=== PATIENT | female | born 1950 | race Caucasian/White ===

== ENCOUNTER 2017-11-12 11:30 | Emergency (ER) | payer MEDICARE ==
[~2017-11-12 11:30] MED LIST: ASPI-1197 PO; ATOR40TA71 PO; DULO60CA63 PO; HYDR25TA PO; LISI10TA7 PO; LOSA25TA21 PO; NIAC-8 PO; QUET200T PO; QUET200T58 PO; VARE1TAB21 PO
== END 2017-11-12 12:59 | disposition home or self-care (01) ==
LOC: EDH 11:30
DX: K11.20 Sialoadenitis, unspecified (principal); E11.9 Type 2 diabetes mellitus without complications; E78.5 Hyperlipidemia, unspecified; I10 Essential (primary) hypertension; I25.10 Atherosclerotic heart disease of native coronary artery without angina pectoris; Z88.0 Allergy status to penicillin; Z88.8 Allergy status to other drugs, medicaments and biological substances; Z72.0 Tobacco use

== ENCOUNTER 2017-12-20 14:47 | Emergency (ER) | payer OTHER, MEDICARE ==
[2017-12-20 15:27] LABS: BASOPHILS % (AUTO) 0.3 % (0.0-5.0); LYMPHOCYTES % (AUTO) 20.4 % (21.0-51.0); MEAN CORPUSCULAR HEMOGLOBIN 34.6 pg (27.0-33.0); MEAN CORPUSCULAR HGB CONC 35.4 g/dL (32.0-36.0); MEAN CORPUSCULAR VOLUME 97.6 fL (79-99); MONOCYTES % (AUTO) 8.1 % (3.0-13.0); NEUTROPHILS % (AUTO) 69.2 % (40.0-77.0); PLATELET COUNT (AUTO) 287 K/uL (130-400); RED CELL DISTRIBUTION WIDTH 14.7 % (11.0-15.5); WHITE BLOOD COUNT (AUTO) 6.2 K/uL (4.8-10.8)
[2017-12-20 15:35] LABS: POTASSIUM 3.6 mmol/L (3.5-5.1)
[2017-12-20] MEDS ORDERED: KETOROLAC TROMETHAMINE 15MG/ML ONE (16:19)
[2017-12-20] MEDS ORDERED: ORPHENADRINE CITRATE 30 MG/ML ML ONE (16:19)
[2017-12-20 16:53] LABS: APPEARANCE,URINE Clear (CLEAR); BILIRUBIN,URINE Negative (NEGATIVE); COLOR,URINE Yellow (YELLOW); GLUCOSE, URINE (UA) 250 mg/dL (NEGATIVE); KETONES,URINE Negative (NEGATIVE); LEUKOCYTE ESTERASE ,URINE Trace (NEGATIVE); NITRATE,URINE Negative (NEGATIVE); OCCULT BLOOD,URINE Nonhemolyzed Trace (NEGATIVE); PH,URINE 6.5 (5.0-8.0); PROTEIN,URINE Negative (NEGATIVE); UROBILINOGEN,URINE 0.2 mg/dL (0.2-1.0)
[2017-12-20 17:13] LABS: BACTERIA,URINE Rare /HPF (None Seen); RBC,URINE 0-1 /HPF (0-1); SQUAMOUS EPITHELIAL CELL,UR Rare /LPF (0-2); TRANSITIONAL EPI CELLS,URINE Rare /LPF (None Seen); WBC,URINE 0-1 /HPF (0-1)
== END 2017-12-20 16:57 | disposition home or self-care (01) ==
LOC: EDH 14:47
DX: S16.1XXA Strain of muscle, fascia and tendon at neck level, initial encounter (principal); S29.011A Strain of muscle and tendon of front wall of thorax, initial encounter; I25.10 Atherosclerotic heart disease of native coronary artery without angina pectoris; E11.9 Type 2 diabetes mellitus without complications; E78.5 Hyperlipidemia, unspecified; I10 Essential (primary) hypertension; Z88.0 Allergy status to penicillin; Z88.8 Allergy status to other drugs, medicaments and biological substances; V49.59XA Passenger injured in collision with other motor vehicles in traffic accident, initial encounter; Y93.89 Activity, other specified; Y92.89 Other specified places as the place of occurrence of the external cause; Y99.8 Other external cause status
CPT/HCPCS: 36415; 71250; 72125; 80048; 81001; 85025; 96374; 96375; 99285; J1885; J2360

== ENCOUNTER 2018-01-10 09:39 | Inpatient (IN) | payer MEDICARE ==
[~2018-01-10] VITALS: Ht 157.5 cm; Wt 75.4 kg
[2018-01-10] VITALS (21 sets, daily range): BP systolic 97–146; BP diastolic 37–69
[2018-01-10 10:14] LABS: BASOPHILS % (AUTO) 0.8 % (0.0-5.0); EOSINOPHILS % (AUTO) 0.1 % (0.0-8.0); HEMATOCRIT 39.6 % (36-48); MEAN CORPUSCULAR HEMOGLOBIN 33.3 pg (27.0-33.0); MEAN CORPUSCULAR HGB CONC 35.9 g/dL (32.0-36.0); MEAN CORPUSCULAR VOLUME 92.9 fL (79-99); MONOCYTES % (AUTO) 2.2 % (3.0-13.0); NEUTROPHILS % (AUTO) 88.9 % (40.0-77.0); NUCLEATED RED BLOOD CELLS 0.3 % (0.0-0.19); PLATELET COUNT (AUTO) 67 K/uL (130-400); RED BLOOD CELL COUNT(AUTO) 4.27 MIL/uL (4.00-5.50); WHITE BLOOD COUNT (AUTO) 7.2 K/uL (4.8-10.8)
[2018-01-10] MEDS ORDERED: SODIUM CHLORIDE 0.9% 1000ML 1,000 ML IV ONE ×3 (10:38→13:26)
[2018-01-10 10:39] LABS: ALBUMIN 2.2 g/dL (3.5-5.0); BILIRUBIN,TOTAL 1.1 mg/dL (0.2-1.0); CREATINE KINASE MB 1.1 ng/mL (0.5-3.6); CREATININE 4.9 mg/dL (0.5-1.5); TOTAL PROTEIN, SERUM 6.7 g/dL (6.0-8.3)
[2018-01-10 10:47] LABS: INR 0.99 (0.85-1.15); PARTIAL THROMBOPLASTIN TIME 26.4 SEC (26.3-35.5); PROTHROMBIN TIME 10.4 SEC (9.6-11.6)
[2018-01-10 11:05] LABS: POTASSIUM 1.8 mmol/L (3.5-5.1)
[2018-01-10] MEDS ORDERED: POTASSIUM CHLORIDE 20MEQ/100ML 100 ML IV ONE (11:25)
[2018-01-10] MEDS ORDERED: POTASSIUM BICARB/CIT AC 25 MEQ TABLET.EFF ONE (11:25)
[2018-01-10 11:43] LABS: PLATELET MORPHOLOGY COMMENT DECREASED
[2018-01-10] MEDS ORDERED: HYDROCORTISONE SOD SUCCINATE 100 MG/2 ML VIAL ONE ×2 (12:13→13:25)
[2018-01-10] MEDS ORDERED: LIDOCAINE HCL-MPF 1% 2ML VIAL ONE (12:13)
[2018-01-10] MEDS ORDERED: DOPAMINE HCL 400 MG/D5%-WATER 250 ML IV ONE (12:14)
[2018-01-10] MEDS ORDERED: NOREPINEPHRINE 4MG/NS 250ML 250 ML IV PRN (13:15)
[2018-01-10] MEDS ORDERED: LEVOFLOXACIN 500 MG/D5W 100 ML 100 ML ONE (13:26)
[2018-01-10 14:00] LABS: APPEARANCE,URINE SL CLOUDY (CLEAR); BILIRUBIN,URINE NEGATIVE (NEGATIVE); COLOR,URINE YELLOW (YELLOW); GLUCOSE, URINE (UA) >=1000 mg/dL (NEGATIVE); KETONES,URINE NEGATIVE (NEGATIVE); LEUKOCYTE ESTERASE ,URINE NEGATIVE (NEGATIVE); NITRATE,URINE NEGATIVE (NEGATIVE); OCCULT BLOOD,URINE MODERATE (NEGATIVE); PH,URINE 5.5 (5.0-8.0); PROTEIN,URINE 30 (NEGATIVE); UROBILINOGEN,URINE 0.2 mg/dL (0.2-1.0)
[2018-01-10] MEDS ORDERED: POTASSIUM CHLORIDE 20 MEQ ERTAB PO PRN (14:15)
[2018-01-10] MEDS ORDERED: POTASSIUM CHLORIDE 10% ELIXIR 20 MEQ/15 ML UDCUP PO PRN ×2 (14:15)
[2018-01-10] MEDS ORDERED: POTASSIUM CHLORIDE 20MEQ/100ML 100 ML IV PRN (14:15)
[2018-01-10] MEDS: SODIUM CHLORIDE 0.9% 1000ML 1,000 ML IV SCH (14:15)
[2018-01-10] MEDS ORDERED: LIDOCAINE HCL-MPF 1% 2ML VIAL IVP PRN (14:15)
[2018-01-10] MEDS ORDERED: MEROPENEM 1GM IVPB PREMIXED 1 GM IV SCH (14:15)
[2018-01-10 14:25] LABS: AMORPHOUS SEDIMENT,UR Moderate /LPF (None Seen); BACTERIA,URINE Few /HPF (None Seen); SQUAMOUS EPITHELIAL CELL,UR 0-2 /HPF (0-2); WBC,URINE None Seen /HPF (0-1)
[2018-01-10] MEDS ORDERED: MEROPENEM 1 GM VIAL IVP SCH (15:00)
[2018-01-10 15:04] LABS: CHLORIDE,URINE RANDOM 66 mmol/L (110-250); POTASSIUM,URINE RANDOM 43 mmol/L (25-125); SODIUM,URINE RANDOM 31 mmol/l (40-220)
[2018-01-10] MEDS ORDERED: RENAL DOSE IV PRN (15:15)
[2018-01-10] MEDS ORDERED: DEXTROSE 50%-WATER 50 ML DISP.SYRIN IV PRN (15:30)
[2018-01-10] MEDS ORDERED: GLUCAGON 1MG KIT 1 MG ML IM PRN (15:30)
[2018-01-10 16:41] LABS: CREATININE 4.5 mg/dL (0.5-1.5); THYROID STIMULATING HORMONE 0.09 uIU/mL (0.36-3.74); URIC ACID 6.7 mg/dL (2.6-7.2)
[2018-01-10 16:43] LABS: POTASSIUM 2.1 mmol/L (3.5-5.1)
[2018-01-10] MEDS: HYDROCORTISONE SOD SUCCINATE 100 MG/2 ML VIAL IV SCH (16:45)
[2018-01-10] MEDS: MEROPENEM 500 MG VIAL IVP SCH (16:45)
[2018-01-10] MEDS: INSULIN HUMULIN R 100 UNIT/ML 3ML SQ SCH ×2 (16:49→23:00)
[2018-01-10] MEDS: POTASSIUM CHLORIDE 20MEQ/100ML 100 ML IV PRN ×2 (17:00→17:36)
[2018-01-10] MEDS: POTASSIUM CHLORIDE 20 MEQ ERTAB PO PRN ×5 (17:00→23:36)
[2018-01-10] MEDS: LIDOCAINE HCL-MPF 1% 2ML VIAL IVP PRN (17:36)
[2018-01-10 22:15] LABS: CREATININE 4.2 mg/dL (0.5-1.5)
[2018-01-10 22:18] LABS: POTASSIUM 2.7 mmol/L (3.5-5.1)
[2018-01-11] VITALS (15 sets, daily range): BP systolic 110–159; BP diastolic 54–84
[2018-01-11] MEDS: SODIUM CHLORIDE 0.9% 1000ML 1,000 ML IV SCH ×4 (00:10→20:15)
[2018-01-11] MEDS: HYDROCORTISONE SOD SUCCINATE 100 MG/2 ML VIAL IV SCH ×2 (00:10→06:38)
[2018-01-11] MEDS: LIDOCAINE HCL-MPF 1% 2ML VIAL IVP PRN ×3 (01:30→11:04)
[2018-01-11] MEDS: POTASSIUM CHLORIDE 20MEQ/100ML 100 ML IV PRN ×4 (01:30→11:58)
[2018-01-11 03:47] LABS: HEMATOCRIT 35.2 % (36-48); MEAN CORPUSCULAR HEMOGLOBIN 33.5 pg (27.0-33.0); MEAN CORPUSCULAR HGB CONC 35.9 g/dL (32.0-36.0); MEAN CORPUSCULAR VOLUME 93.5 fL (79-99); NUCLEATED RED BLOOD CELLS 0.3 % (0.0-0.19); PLATELET COUNT (AUTO) 55 K/uL (130-400); RED BLOOD CELL COUNT(AUTO) 3.76 MIL/uL (4.00-5.50); RED CELL DISTRIBUTION WIDTH 16.3 % (11.0-15.5); WHITE BLOOD COUNT (AUTO) 6.6 K/uL (4.8-10.8)
[2018-01-11 03:57] LABS: POTASSIUM 3.1 mmol/L (3.5-5.1)
[2018-01-11] MEDS: MEROPENEM 500 MG VIAL IVP SCH ×2 (04:29→16:44)
[2018-01-11] MEDS: INSULIN HUMULIN R 100 UNIT/ML 3ML SQ SCH ×4 (06:27→21:19)
[2018-01-11] MEDS: POTASSIUM CHLORIDE 20 MEQ ERTAB PO PRN ×6 (08:01→16:50)
[2018-01-11 10:40] LABS: CREATININE 3.7 mg/dL (0.5-1.5)
[2018-01-11 10:46] LABS: POTASSIUM 2.6 mmol/L (3.5-5.1)
[2018-01-11 16:14] LABS: CREATININE 3.3 mg/dL (0.5-1.5); POTASSIUM 3.2 mmol/L (3.5-5.1)
[2018-01-11] MEDS: IPRATROPIUM/ALBUTEROL SULFATE 3 ML SOLUTION IH PRN (20:30)
[2018-01-11] MEDS: NIACIN 250 MG TABLET.SA PO SCH (21:00)
[2018-01-11] MEDS: QUETIAPINE FUMARATE 100 MG TAB PO SCH (21:13)
[2018-01-11] MEDS: ATORVASTATIN CALCIUM 40 MG TABLET PO SCH (21:13)
[2018-01-12 03:18] VITALS: BP 140/75
[2018-01-12] MEDS: SODIUM CHLORIDE 0.9% 1000ML 1,000 ML IV SCH ×3 (03:28→23:16)
[2018-01-12] MEDS: MEROPENEM 500 MG VIAL IVP SCH (03:28)
[2018-01-12 06:04] LABS: HEMATOCRIT 36.2 % (36-48); MEAN CORPUSCULAR HEMOGLOBIN 33.5 pg (27.0-33.0); NUCLEATED RED BLOOD CELLS 0.2 % (0.0-0.19); PLATELET COUNT (AUTO) 65 K/uL (130-400); RED BLOOD CELL COUNT(AUTO) 3.89 MIL/uL (4.00-5.50); RED CELL DISTRIBUTION WIDTH 16.6 % (11.0-15.5)
[2018-01-12] MEDS: INSULIN HUMULIN R 100 UNIT/ML 3ML SQ SCH ×5 (06:10→21:01)
[2018-01-12 06:12] LABS: CREATININE 2.7 mg/dL (0.5-1.5)
[2018-01-12 06:17] LABS: POTASSIUM 2.7 mmol/L (3.5-5.1)
[2018-01-12 08:00] VITALS: BP 147/83
[2018-01-12] MEDS: LIDOCAINE HCL-MPF 1% 2ML VIAL IVP PRN ×2 (09:13→11:05)
[2018-01-12] MEDS: NIACIN 250 MG TABLET.SA PO SCH ×2 (09:13→20:56)
[2018-01-12] MEDS: POTASSIUM CHLORIDE 20 MEQ ERTAB PO PRN ×2 (09:13→11:06)
[2018-01-12] MEDS: POTASSIUM CHLORIDE 20MEQ/100ML 100 ML IV PRN ×2 (09:14→11:05)
[2018-01-12 11:00] VITALS: BP 151/84
[2018-01-12] MEDS ORDERED: LEVOFLOXACIN 250 MG/D5W 50ML 50 ML IVPB SCH (13:00)
[2018-01-12] MEDS: IPRATROPIUM/ALBUTEROL SULFATE 3 ML SOLUTION IH PRN (14:45)
[2018-01-12 16:00] VITALS: BP 152/89
[2018-01-12 19:00] VITALS: BP 173/85
[2018-01-12] MEDS: QUETIAPINE FUMARATE 100 MG TAB PO SCH (20:56)
[2018-01-12] MEDS: ATORVASTATIN CALCIUM 40 MG TABLET PO SCH (20:56)
[2018-01-12 21:41] VITALS: BP 143/82
[2018-01-13] VITALS: BP 153/62
[2018-01-13] MEDS: SODIUM CHLORIDE 0.9% 1000ML 1,000 ML IV SCH ×3 (01:33→22:15)
[2018-01-13 04:00] VITALS: BP 145/69
[2018-01-13 04:56] LABS: HEMATOCRIT 33.6 % (36-48); MEAN CORPUSCULAR HGB CONC 35.7 g/dL (32.0-36.0); MEAN CORPUSCULAR VOLUME 92.6 fL (79-99); NUCLEATED RED BLOOD CELLS 0.1 % (0.0-0.19); PLATELET COUNT (AUTO) 61 K/uL (130-400); RED BLOOD CELL COUNT(AUTO) 3.63 MIL/uL (4.00-5.50); RED CELL DISTRIBUTION WIDTH 16.8 % (11.0-15.5); WHITE BLOOD COUNT (AUTO) 6.4 K/uL (4.8-10.8)
[2018-01-13 05:04] LABS: BAND NEUTROPHILS % (MANUAL) 4 % (0-2); LYMPHOCYTES % (MANUAL) 17 % (22-44); MAN.DIFF COMMENT-IMPRESSION MANUAL DIFFERENTIAL; MONOCYTES % (MANUAL) 3 % (2-9); PLATELET MORPHOLOGY COMMENT DECREASED; SEGMENTED NEUTROPHILS % 76 % (40-70)
[2018-01-13 05:07] LABS: CREATININE 2.1 mg/dL (0.5-1.5); MAGNESIUM 1.7 mg/dL (1.80-2.40)
[2018-01-13 05:10] LABS: POTASSIUM 2.4 mmol/L (3.5-5.1)
[2018-01-13] MEDS: LIDOCAINE HCL-MPF 1% 2ML VIAL IVP PRN ×4 (05:29→23:09)
[2018-01-13] MEDS: POTASSIUM CHLORIDE 20MEQ/100ML 100 ML IV PRN ×4 (05:29→23:10)
[2018-01-13] MEDS: POTASSIUM CHLORIDE 20 MEQ ERTAB PO PRN ×5 (05:34→23:10)
[2018-01-13] MEDS: INSULIN HUMULIN R 100 UNIT/ML 3ML SQ SCH ×4 (06:33→21:11)
[2018-01-13 08:00] VITALS: BP 159/97
[2018-01-13] MEDS: NIACIN 250 MG TABLET.SA PO SCH ×2 (08:53→21:04)
[2018-01-13 11:00] VITALS: BP 150/71
[2018-01-13] MEDS: IPRATROPIUM/ALBUTEROL SULFATE 3 ML SOLUTION IH PRN ×2 (11:03→21:56)
[2018-01-13] MEDS ORDERED: MAGNESIUM SULFATE 1 GM in SODIUM CHLORIDE 0.9% 50 ML IV SCH (12:45)
[2018-01-13] MEDS ORDERED: MAGNESIUM 2GM PREMIX 50ML 50 ML IV SCH (12:45)
[2018-01-13] MEDS ORDERED: FUROSEMIDE 10 MG/ML 4ML VIAL IV SCH (13:15)
[2018-01-13 16:00] VITALS: BP 142/95
[2018-01-13 19:00] VITALS: BP 128/65
[2018-01-13] MEDS: QUETIAPINE FUMARATE 100 MG TAB PO SCH (21:04)
[2018-01-13] MEDS: ATORVASTATIN CALCIUM 40 MG TABLET PO SCH (21:04)
[2018-01-14] VITALS: BP 110/52
[2018-01-14] MEDS: POTASSIUM CHLORIDE 20 MEQ ERTAB PO PRN ×2 (03:01→16:57)
[2018-01-14 04:00] VITALS: BP 119/60
[2018-01-14 04:16] LABS: HEMATOCRIT 32.4 % (36-48); MEAN CORPUSCULAR HEMOGLOBIN 33.8 pg (27.0-33.0); MEAN CORPUSCULAR HGB CONC 36.3 g/dL (32.0-36.0); MEAN CORPUSCULAR VOLUME 93.1 fL (79-99); NUCLEATED RED BLOOD CELLS 0.2 % (0.0-0.19); PLATELET COUNT (AUTO) 70 K/uL (130-400); RED BLOOD CELL COUNT(AUTO) 3.48 MIL/uL (4.00-5.50); RED CELL DISTRIBUTION WIDTH 16.6 % (11.0-15.5); WHITE BLOOD COUNT (AUTO) 6.9 K/uL (4.8-10.8)
[2018-01-14 04:21] LABS: CREATININE 1.9 mg/dL (0.5-1.5); MAGNESIUM 2.1 mg/dL (1.80-2.40); POTASSIUM 3.7 mmol/L (3.5-5.1)
[2018-01-14 04:59] LABS: BAND NEUTROPHILS % (MANUAL) 3 % (0-2); LYMPHOCYTES % (MANUAL) 12 % (22-44); MAN.DIFF COMMENT-IMPRESSION MANUAL DIFFERENTIAL; MONOCYTES % (MANUAL) 4 % (2-9); SEGMENTED NEUTROPHILS % 81 % (40-70)
[2018-01-14 05:00] LABS: PLATELET MORPHOLOGY COMMENT DECREASED
[2018-01-14] MEDS: SODIUM CHLORIDE 0.9% 1000ML 1,000 ML IV SCH (05:21)
[2018-01-14] MEDS: IPRATROPIUM/ALBUTEROL SULFATE 3 ML SOLUTION IH PRN (06:09)
[2018-01-14] MEDS: INSULIN HUMULIN R 100 UNIT/ML 3ML SQ SCH ×3 (06:20→16:57)
[2018-01-14] MEDS ORDERED: PNEUMOCOCCAL VACCINE POLYVALENT 0.5 ML/VIAL [PPV] IM SCH (06:30)
[2018-01-14 08:03] VITALS: BP 132/67
[2018-01-14 11:45] VITALS: BP 146/69
[2018-01-14] MEDS: NIACIN 250 MG TABLET.SA PO SCH (12:00)
[2018-01-14 16:11] VITALS: BP 152/78
== END 2018-01-14 20:37 | disposition home or self-care (01) | DRG 682 ==
LOC: EDH 09:39 → EDHIP 12:30 → 2BH 13:16 → 3AH 01-11 15:25
PROVIDERS: ADMIT Family Medicine; ATTEND Family Medicine
PROC: 3E0234Z Introduction of Serum, Toxoid and Vaccine into Muscle, Percutaneous Approach (ICD-10-PCS; principal; 2018-01-10)
DX: N17.0 Acute kidney failure with tubular necrosis (principal); R57.1 Hypovolemic shock; E87.2 Acidosis; E11.22 Type 2 diabetes mellitus with diabetic chronic kidney disease; D69.6 Thrombocytopenia, unspecified; E87.1 Hypo-osmolality and hyponatremia; E83.42 Hypomagnesemia; J44.0 Chronic obstructive pulmonary disease with (acute) lower respiratory infection; E87.6 Hypokalemia; E87.8 Other disorders of electrolyte and fluid balance, not elsewhere classified; J20.9 Acute bronchitis, unspecified; N18.3 Chronic kidney disease, stage 3 (moderate); I12.9 Hypertensive chronic kidney disease with stage 1 through stage 4 chronic kidney disease, or unspecified chronic kidney disease; E78.5 Hyperlipidemia, unspecified; D63.8 Anemia in other chronic diseases classified elsewhere; F31.9 Bipolar disorder, unspecified; F17.210 Nicotine dependence, cigarettes, uncomplicated; I25.10 Atherosclerotic heart disease of native coronary artery without angina pectoris; Z88.0 Allergy status to penicillin; Z88.8 Allergy status to other drugs, medicaments and biological substances; Z23 Encounter for immunization
CPT/HCPCS: 36415; 71045; 76700; 76770; 80048; 80051; 80053; 81001; 82150; 82533; 82550; 82553; 82948; 83605; 83690; 83735; 83935; 84132; 84443; 84484; 84550; 85025; 85027; 85610; 85730; 87040; 87507; 87633; 90732; 93005; 94640; 94664; A4218; J1265; J1720; J1815; J1940; J1956; J2185; J3475; J3480; J3490; J7030

== ENCOUNTER 2018-01-20 06:31 | Inpatient (IN) | payer MEDICARE ==
[~2018-01-20] VITALS: Ht 157.5 cm; Wt 76.8 kg
[~2018-01-20 06:31] MED LIST changes: -DULO60CA63 PO; -HYDR25TA PO; -LISI10TA7 PO; -LOSA25TA21 PO; -QUET200T PO; -VARE1TAB21 PO
[2018-01-20 06:49] LABS: MEAN CORPUSCULAR VOLUME 94.7 fL (79-99); NUCLEATED RED BLOOD CELLS 0.1 % (0.0-0.19); WHITE BLOOD COUNT (AUTO) 5.6 K/uL (4.8-10.8)
[2018-01-20 07:01] LABS: ALBUMIN 2.8 g/dL (3.5-5.0); BASOPHILS % (AUTO) 1.1 % (0.0-5.0); BILIRUBIN,TOTAL 1.2 mg/dL (0.2-1.0); CREATININE 1.2 mg/dL (0.5-1.5); EOSINOPHILS % (AUTO) 0.5 % (0.0-8.0); HEMATOCRIT 39.6 % (36-48); LYMPHOCYTES % (AUTO) 42.3 % (21.0-51.0); MEAN CORPUSCULAR HGB CONC 34.8 g/dL (32.0-36.0); MONOCYTES % (AUTO) 9.8 % (3.0-13.0); NEUTROPHILS % (AUTO) 46.3 % (40.0-77.0); PLATELET COUNT (AUTO) 126 K/uL (130-400); RED BLOOD CELL COUNT(AUTO) 4.18 MIL/uL (4.00-5.50); RED CELL DISTRIBUTION WIDTH 16.7 % (11.0-15.5); TOTAL PROTEIN, SERUM 7.6 g/dL (6.0-8.3)
[2018-01-20] MEDS ORDERED: SODIUM CHLORIDE 0.9% 500ML 500 ML IV ONE (07:15)
[2018-01-20 07:21] LABS: POTASSIUM 2.9 mmol/L (3.5-5.1)
[2018-01-20] MEDS ORDERED: MAGNESIUM 2GM PREMIX 50ML 50 ML IV ONE (08:40)
[2018-01-20] MEDS ORDERED: POTASSIUM BICARB/CIT AC 25 MEQ TABLET.EFF ONE (08:40)
[2018-01-20 11:55] LABS: BILIRUBIN,URINE Negative (NEGATIVE); COLOR,URINE Yellow (YELLOW); GLUCOSE, URINE (UA) 500 mg/dL (NEGATIVE); KETONES,URINE 15 mg/dL (NEGATIVE); LEUKOCYTE ESTERASE ,URINE Small (NEGATIVE); NITRATE,URINE Negative (NEGATIVE); OCCULT BLOOD,URINE Nonhemolyzed Trace (NEGATIVE); PROTEIN,URINE POS 2+ (NEGATIVE)
[2018-01-20 11:56] LABS: APPEARANCE,URINE SLIGHTLY CLOUDY (CLEAR)
[2018-01-20 12:16] LABS: BACTERIA,URINE Rare /HPF (None Seen); RBC,URINE 0-1 /HPF (0-1); SQUAMOUS EPITHELIAL CELL,UR Rare /HPF (0-2)
[2018-01-20] MEDS ORDERED: POTASSIUM CHLORIDE 10% ELIXIR 20 MEQ/15 ML UDCUP PO PRN (12:30)
[2018-01-20 12:34] VITALS: BP 166/97
[2018-01-20 14:02] LABS: CHLORIDE,URINE RANDOM 108 mmol/L (110-250); POTASSIUM,URINE RANDOM 27 mmol/L (25-125); SODIUM,URINE RANDOM 101 mmol/l (40-220)
[2018-01-20] MEDS: POTASSIUM CHLORIDE 20MEQ/100ML 100 ML IV PRN (15:02)
[2018-01-20] MEDS: SODIUM CHLORIDE 0.9% 1000ML 1,000 ML IV SCH (15:02)
[2018-01-20 16:00] VITALS: BP 160/80
[2018-01-20 19:00] VITALS: BP 190/86
[2018-01-20] MEDS: QUETIAPINE FUMARATE 100 MG TAB PO SCH (20:16)
[2018-01-20] MEDS: ATORVASTATIN CALCIUM 40 MG TABLET PO SCH (20:16)
[2018-01-20] MEDS: HYDRALAZINE HCL 20 MG/ML VIAL IV PRN (20:21)
[2018-01-20] MEDS ORDERED: GADOBENATE DIMEGLUMINE 20 ML IV ONE (20:46)
[2018-01-20] MEDS ORDERED: LORAZEPAM 2 MG/ML 1 ML VIAL ONE (21:23)
[2018-01-20] MEDS ORDERED: LORAZEPAM 2 MG/ML 1 ML VIAL IVP ONE (22:30)
[2018-01-20 23:00] VITALS: BP 147/85
[2018-01-21] MEDS: SODIUM CHLORIDE 0.9% 1000ML 1,000 ML IV SCH ×3 (02:42→16:30)
[2018-01-21 03:00] VITALS: BP 169/75
[2018-01-21] MEDS: HYDRALAZINE HCL 20 MG/ML VIAL IV PRN (03:45)
[2018-01-21 04:39] LABS: HEMOGLOBIN A1C 7.8 % (4.0-6.0)
[2018-01-21 04:40] LABS: HEMATOCRIT 33.3 % (36-48); MEAN CORPUSCULAR HEMOGLOBIN 33.1 pg (27.0-33.0); MEAN CORPUSCULAR VOLUME 94.6 fL (79-99); NUCLEATED RED BLOOD CELLS 0.1 % (0.0-0.19); PLATELET COUNT (AUTO) 107 K/uL (130-400); RED BLOOD CELL COUNT(AUTO) 3.52 MIL/uL (4.00-5.50); WHITE BLOOD COUNT (AUTO) 4.2 K/uL (4.8-10.8)
[2018-01-21 05:05] LABS: CREATININE 1.1 mg/dL (0.5-1.5); MAGNESIUM 1.9 mg/dL (1.80-2.40); URIC ACID 4.3 mg/dL (2.6-7.2)
[2018-01-21] MEDS: POTASSIUM CHLORIDE 20MEQ/100ML 100 ML IV PRN ×2 (05:36→10:17)
[2018-01-21] MEDS: LIDOCAINE HCL-MPF 1% 2ML VIAL IVP PRN ×2 (05:36→10:17)
[2018-01-21 08:00] VITALS: BP 187/101
[2018-01-21] MEDS ORDERED: MORPHINE SULFATE 2 MG/ML 1ML SYG IVP PRN (08:00)
[2018-01-21] MEDS ORDERED: HYDRALAZINE HCL 20 MG/ML VIAL IV PRN (08:00)
[2018-01-21] MEDS: FOLIC ACID/VITAMIN B COMP W-C 1 MG CAPSULE PO SCH (08:22)
[2018-01-21] MEDS: ASPIRIN 81MG TAB.CHEW PO SCH (08:22)
[2018-01-21] MEDS: PANTOPRAZOLE SODIUM 40 MG TABLET.DR PO SCH (08:30)
[2018-01-21] MEDS: MORPHINE SULFATE 4 MG/1ML SYG IVP PRN (08:31)
[2018-01-21] MEDS: CLOPIDOGREL BISULFATE 75 MG TAB PO SCH (10:19)
[2018-01-21 11:00] VITALS: BP 187/98
[2018-01-21 13:00] LABS: CREATINE KINASE MB < 0.5 ng/mL (0.5-3.6); CREATINE KINASE, TOTAL 15 U/L (21-232); MYOGLOBIN 39 ng/mL (10-92); TROPONIN I < 0.04 ng/mL (0.00-0.06)
[2018-01-21] MEDS ORDERED: ENALAPRILAT DIHYDRATE 1.25MG/ML 1ML VIAL IV PRN (13:30)
[2018-01-21 16:00] VITALS: BP 197/98
[2018-01-21] MEDS: INSULIN HUMULIN R 100 UNIT/ML 3ML SQ SCH ×2 (16:28→21:47)
[2018-01-21 19:25] VITALS: BP 137/74
[2018-01-21] MEDS ORDERED: INSULIN GLARGINE 100 UNITS/ML 10 ML VIAL SQ SCH (21:00)
[2018-01-21] MEDS: ATORVASTATIN CALCIUM 40 MG TABLET PO SCH (21:38)
[2018-01-21] MEDS: QUETIAPINE FUMARATE 100 MG TAB PO SCH (21:39)
[2018-01-22] VITALS (7 sets, daily range): BP systolic 122–185; BP diastolic 78–99
[2018-01-22] MEDS: SODIUM CHLORIDE 0.9% 1000ML 1,000 ML IV SCH ×2 (04:06→08:31)
[2018-01-22 05:11] LABS: HEMATOCRIT 32.5 % (36-48); MEAN CORPUSCULAR HGB CONC 35.8 g/dL (32.0-36.0); NUCLEATED RED BLOOD CELLS 0.1 % (0.0-0.19); PLATELET COUNT (AUTO) 102 K/uL (130-400); RED BLOOD CELL COUNT(AUTO) 3.42 MIL/uL (4.00-5.50); RED CELL DISTRIBUTION WIDTH 17.5 % (11.0-15.5); WHITE BLOOD COUNT (AUTO) 3.7 K/uL (4.8-10.8)
[2018-01-22 05:34] LABS: ALBUMIN 2.4 g/dL (3.5-5.0); BILIRUBIN,DIRECT 0.2 mg/dL (0.0-0.3); BILIRUBIN,TOTAL 0.9 mg/dL (0.2-1.0); CREATININE 1.2 mg/dL (0.5-1.5); MAGNESIUM 1.7 mg/dL (1.80-2.40); TOTAL PROTEIN, SERUM 6.4 g/dL (6.0-8.3)
[2018-01-22 05:43] LABS: POTASSIUM 2.9 mmol/L (3.5-5.1)
[2018-01-22] MEDS: POTASSIUM CHLORIDE 20MEQ/100ML 100 ML IV PRN (05:53)
[2018-01-22] MEDS: LIDOCAINE HCL-MPF 1% 2ML VIAL IVP PRN (05:54)
[2018-01-22] MEDS: PANTOPRAZOLE SODIUM 40 MG TABLET.DR PO SCH (06:11)
[2018-01-22] MEDS: INSULIN HUMULIN R 100 UNIT/ML 3ML SQ SCH ×4 (06:34→21:04)
[2018-01-22] MEDS: POTASSIUM CHLORIDE 20 MEQ ERTAB PO PRN ×5 (08:17→20:53)
[2018-01-22] MEDS: FOLIC ACID/VITAMIN B COMP W-C 1 MG CAPSULE PO SCH (08:17)
[2018-01-22] MEDS: CLOPIDOGREL BISULFATE 75 MG TAB PO SCH (08:18)
[2018-01-22] MEDS: ASPIRIN 81MG TAB.CHEW PO SCH (08:20)
[2018-01-22] MEDS ORDERED: MAGNESIUM 2GM PREMIX 50ML 50 ML IV SCH (10:45)
[2018-01-22] MEDS: ATORVASTATIN CALCIUM 40 MG TABLET PO SCH (20:51)
[2018-01-22] MEDS: QUETIAPINE FUMARATE 100 MG TAB PO SCH (20:52)
[2018-01-22] MEDS: METOPROLOL TARTRATE 25 MG TAB PO SCH (20:52)
[2018-01-22] MEDS: POTASSIUM CHLORIDE 20 MEQ ERTAB PO SCH (20:52)
[2018-01-22] MEDS: INSULIN GLARGINE 100 UNITS/ML 10 ML VIAL SQ SCH (21:03)
[2018-01-23] MEDS: SODIUM CHLORIDE 0.9% 1000ML 1,000 ML IV SCH (00:58)
[2018-01-23] MEDS: MORPHINE SULFATE 4 MG/1ML SYG IVP PRN (01:02)
[2018-01-23 03:20] VITALS: BP 136/85
[2018-01-23 05:27] LABS: HEMATOCRIT 35.3 % (36-48); MEAN CORPUSCULAR HEMOGLOBIN 32.5 pg (27.0-33.0); MEAN CORPUSCULAR VOLUME 95.7 fL (79-99); PLATELET COUNT (AUTO) 104 K/uL (130-400); RED BLOOD CELL COUNT(AUTO) 3.68 MIL/uL (4.00-5.50); RED CELL DISTRIBUTION WIDTH 17.7 % (11.0-15.5); WHITE BLOOD COUNT (AUTO) 4.4 K/uL (4.8-10.8)
[2018-01-23 05:36] LABS: MAGNESIUM 2.1 mg/dL (1.80-2.40); POTASSIUM 4.7 mmol/L (3.5-5.1)
[2018-01-23] MEDS: INSULIN HUMULIN R 100 UNIT/ML 3ML SQ SCH ×3 (07:30→22:05)
[2018-01-23 08:03] VITALS: BP 174/96
[2018-01-23] MEDS: ASPIRIN 81MG TAB.CHEW PO SCH (09:00)
[2018-01-23] MEDS: CLOPIDOGREL BISULFATE 75 MG TAB PO SCH (09:00)
[2018-01-23] MEDS: METOPROLOL TARTRATE 25 MG TAB PO SCH ×2 (09:00→21:55)
[2018-01-23] MEDS ORDERED: POTASSIUM CHLORIDE 20 MEQ ERTAB PO SCH (09:00)
[2018-01-23] MEDS: PANTOPRAZOLE SODIUM 40 MG TABLET.DR PO SCH (09:00)
[2018-01-23] MEDS: FOLIC ACID/VITAMIN B COMP W-C 1 MG CAPSULE PO SCH (09:00)
[2018-01-23] MEDS: POTASSIUM CHLORIDE 20 MEQ ERTAB PO SCH ×2 (09:00→21:55)
[2018-01-23 11:57] VITALS: BP 176/95
[2018-01-23 15:25] VITALS: BP 171/92
[2018-01-23] MEDS ORDERED: CLONIDINE HCL 0.1 MG TABLET PO PRN (17:00)
[2018-01-23] MEDS ORDERED: AMLODIPINE BESYLATE 5 MG TAB PO SCH (17:00)
[2018-01-23 19:55] VITALS: BP 176/95
[2018-01-23] MEDS: ATORVASTATIN CALCIUM 40 MG TABLET PO SCH (21:55)
[2018-01-23] MEDS: QUETIAPINE FUMARATE 100 MG TAB PO SCH (21:55)
[2018-01-23] MEDS: INSULIN GLARGINE 100 UNITS/ML 10 ML VIAL SQ SCH (22:06)
== END 2018-01-23 22:25 | DRG 65 ==
LOC: EDH 06:31 → EDHIP 11:11 → 3AH 12:05
PROVIDERS: ADMIT Family Medicine; ATTEND Family Medicine
DX: I63.9 Cerebral infarction, unspecified (principal); N17.9 Acute kidney failure, unspecified; E11.22 Type 2 diabetes mellitus with diabetic chronic kidney disease; E11.51 Type 2 diabetes mellitus with diabetic peripheral angiopathy without gangrene; G81.94 Hemiplegia, unspecified affecting left nondominant side; E86.0 Dehydration; E11.65 Type 2 diabetes mellitus with hyperglycemia; E87.6 Hypokalemia; N18.3 Chronic kidney disease, stage 3 (moderate); E83.42 Hypomagnesemia; I12.9 Hypertensive chronic kidney disease with stage 1 through stage 4 chronic kidney disease, or unspecified chronic kidney disease; E78.5 Hyperlipidemia, unspecified; D63.8 Anemia in other chronic diseases classified elsewhere; F31.9 Bipolar disorder, unspecified; I25.10 Atherosclerotic heart disease of native coronary artery without angina pectoris; L22 Diaper dermatitis; Z88.0 Allergy status to penicillin; Z88.8 Allergy status to other drugs, medicaments and biological substances; Z91.09 Other allergy status, other than to drugs and biological substances; Z98.51 Tubal ligation status
CPT/HCPCS: 36415; 70450; 70544; 70551; 80048; 80051; 80053; 80061; 80076; 81001; 82088; 82550; 82553; 82948; 83036; 83735; 83874; 83935; 84132; 84244; 84484; 84550; 85025; 85027; 87088; 93005; 93306; 93880; 97039; A9577; J0360; J1815; J2060; J2270; J3475; J3480; J3490; J7030; J7040